=== PATIENT | female | born 1945 | race Caucasian/White ===

== ENCOUNTER 2023-04-23 09:38 | Outpatient (CLI) | payer MEDICARE ==
[2023-04-23] MEDS ORDERED: ACET-890 PO (11:02)
[2023-04-23] MEDS ORDERED: LEVO100T9 PO (11:02)
[2023-04-23] MEDS ORDERED: CHOL100046 PO (11:02)
[2023-04-23] MEDS ORDERED: AMLO5TAB16 PO (11:02)
[2023-04-23] MEDS ORDERED: CYAN250010 PO (11:02)
[2023-04-23] MEDS ORDERED: ADV50250 INH (11:02)
[2023-04-23] MEDS ORDERED: UMEC62.5 INH (11:02)
[2023-04-23] MEDS ORDERED: ROSU20TA73 PO (11:02)
[2023-04-23] MEDS ORDERED: ASPI-1397 PO (11:02)
[2023-04-23] MEDS ORDERED: LORA-641 PO (11:02)
[2023-04-23] MEDS ORDERED: FLUT1BLS13 INH (11:02)
[2023-04-23] MEDS ORDERED: RIVA2.5T PO (11:02)
[2023-04-23 11:39] LABS: ALBUMIN 3.7 G/DL (3.4-5.0); ALBUMIN/GLOBULIN RATIO 1.1 (1.1-1.5); ALKALINE PHOSPHATASE 124 IU/L (46-116); BLOOD UREA NITROGEN 7 MG/DL (7-18); BUN/CREATININE RATIO 12.3 (10.0-20.0); CALCIUM 9.4 MG/DL (8.5-10.1); CHLORIDE 104 MMOL/L (99-107); CREATININE 0.57 MG/DL (0.40-0.90); PRE OP ALT 29 U/L (30-65); PRE OP ANION GAP 6 (8-16); PRE OP AST 23 U/L (10-37); PRE OP BILIRUB, TOTAL 0.4 MG/DL (0.0-1.0); PRE OP GLUCOSE 88 MG/DL (70-104); PRE OP SODIUM 139 MMOL/L (135-145); TOTAL CARBON DIOXIDE 29.5 MMOL/L (24-32); TOTAL PROTEIN 7.1 G/DL (6.4-8.2); eGFR > 90 ML/MIN
== END 2023-04-23 23:59 | disposition home or self-care (01) ==
LOC: LAB 09:38 → EDSTATUS 04-30 07:30
PROVIDERS: ATTEND Surgery
DX: Z01.818 Encounter for other preprocedural examination (principal); K41.90 Unilateral femoral hernia, without obstruction or gangrene, not specified as recurrent; J43.9 Emphysema, unspecified; I10 Essential (primary) hypertension; E03.9 Hypothyroidism, unspecified; Z90.49 Acquired absence of other specified parts of digestive tract; Z90.710 Acquired absence of both cervix and uterus; Z98.890 Other specified postprocedural states; Z98.51 Tubal ligation status; Z79.899 Other long term (current) drug therapy; Z87.891 Personal history of nicotine dependence
CPT/HCPCS: 36415; 80053; 85025

== ENCOUNTER 2023-06-25 08:24 | Day surgery (SDC) | payer MEDICARE ==
[2023-06-18 15:54] LABS: BASOPHILS # (AUTO) 0.1 X10'3 (0-0.2); EOSINOPHILS # (AUTO) 0.2 X10'3 (0-0.9); EOSINOPHILS % (AUTO) 1.8 % (0-6); LYMPHOCYTES # (AUTO) 2.3 X10'3 (1.1-4.8); LYMPHOCYTES % (AUTO) 22.1 % (21-51); MEAN CORPUSCULAR HEMOGLOBIN 24.8 PG (27.0-31.0); MEAN CORPUSCULAR HGB CONC 32.2 g/dL (33.0-36.5); MEAN CORPUSCULAR VOLUME 76.9 FL (78-98); MEAN PLATELET VOLUME 7.9 FL (7.4-10.4); MONOCYTES # (AUTO) 0.6 X10'3 (0-0.9); MONOCYTES % (AUTO) 6.3 % (2-12); NEUTROPHILS # (AUTO) 7.1 X10'3 (1.8-7.7); NEUTROPHILS % (AUTO) 68.8 % (42-75); PRE OP HEMATOCRIT 34.8 % (35.0-45.0); PRE OP HEMOGLOBIN 11.2 g/dL (12.0-16.0); PRE OP PLATELET COUNT 353 X10'3 (140-440); PRE OP WHITE BLOOD COUNT 10.4 10'3 (4.8-10.8); RED BLOOD COUNT 4.52 X10'6 (4.20-5.60); RED CELL DISTRIBUTION WIDTH 16.1 % (11.5-14.5)
[2023-06-18 16:27] LABS: ALBUMIN 3.8 G/DL (3.4-5.0); BLOOD UREA NITROGEN 11 MG/DL (7-18); BUN/CREATININE RATIO 16.9 (10.0-20.0); CALCIUM 9.7 MG/DL (8.5-10.1); CHLORIDE 103 MMOL/L (99-107); CREATININE 0.65 MG/DL (0.40-0.90); PRE OP ANION GAP 9 (8-16); PRE OP GLUCOSE 95 MG/DL (70-104); PRE OP POTASSIUM 3.4 MMOL/L (3.4-5.1); PRE OP SODIUM 141 MMOL/L (135-145); TOTAL CARBON DIOXIDE 29.5 MMOL/L (24-32); eGFR 88 ML/MIN
[2023-06-18 17:02] LABS: ALKALINE PHOSPHATASE 121 IU/L (46-116); PRE OP ALT 30 U/L (30-65); PRE OP AST 20 U/L (10-37); PRE OP BILIRUB, TOTAL 0.4 MG/DL (0.0-1.0); TOTAL PROTEIN 7.6 G/DL (6.4-8.2)
[~2023-06-25] VITALS: Ht 160 cm; Wt 63.5 kg
[2023-06-25] VITALS (13 sets, daily range): BP systolic 132–194; BP diastolic 51–183; PULSE 68–104; RESP 11–19; TEMP 97.9; O2SAT 94–100
[2023-06-25] MEDS: cefazolin 2gm/D5W 100mL 100 ML IV ONE (05:30)
[~2023-06-25 08:24] MED LIST: ACET-890 PO; ADV50250 INH; AMLO5TAB16 PO; ASPI-1397 PO; CHOL100046 PO; CYAN250010 PO; FLUT1BLS13 INH; LEVO100T9 PO; LORA-641 PO; RIVA2.5T PO; ROSU20TA73 PO; UMEC62.5 INH; ringers solution, lacted 1,000 ML IV SCH
[2023-06-25] MEDS: famotidine 20mg tablet PO ONE (08:55)
[2023-06-25] MEDS ORDERED: ALBU90AE INH (09:19)
[2023-06-25] MEDS ORDERED: LIDOcaine 1% 30ml preserv. free vial ONE (09:20)
[2023-06-25] MEDS ORDERED: BUPIVAcaine/PF 2.5mg/ml (0.25%) 10ml vial ONE (09:20)
[2023-06-25] MEDS ORDERED: propofol inj 20 ML IV ONE (09:28)
[2023-06-25] MEDS ORDERED: fentaNYL/PF 50MCG/1 ML 2ML syringe ONE (09:28)
[2023-06-25] MEDS ORDERED: midazolam 1 mg/ML 2ml injection ONE (09:28)
[2023-06-25] MEDS ORDERED: rocuronium 10mg/ml inj IV ONE (09:28)
[2023-06-25] MEDS ORDERED: sevoflurane 250ml liquid IH ONE (09:32)
[2023-06-25] MEDS ORDERED: meperidine/PF 25mg/ml syringe IV PRN ×2 (09:35)
[2023-06-25] MEDS ORDERED: proCHLORperazine 10 MG/2 ml inj IV PRN (09:35)
[2023-06-25] MEDS ORDERED: ringers solution, lacted 1,000 ML IV SCH (09:35)
[2023-06-25] MEDS ORDERED: morphine 4 MG/ML inj SYRINge IV PRN (09:35)
[2023-06-25] MEDS ORDERED: ipratropium/albuterol 3ml nebule IH ONE (09:35)
[2023-06-25] MEDS ORDERED: morphine 2 MG/ML inj. syringe IV PRN (09:35)
[2023-06-25] MEDS: BUPIVAcaine/PF 2.5mg/ml (0.25%) 10ml vial IJ ONE (10:14)
[2023-06-25] MEDS: LIDOcaine 1% 30ml preserv. free vial IJ ONE (10:16)
[2023-06-25] MEDS ORDERED: ondansetron/PF 4mg/2ml inj ONE (10:23)
[2023-06-25] MEDS ORDERED: neostigmine methylsulfate 1 MG/ML 10ml vial ONE (10:24)
[2023-06-25] MEDS ORDERED: dexamethasone sod phosphate 4mg/ml inj. ONE (10:24)
[2023-06-25] MEDS ORDERED: glycopyrrolate 0.2mg/ml inj ONE (10:24)
[2023-06-25] MEDS: ondansetron/PF 4mg/2ml inj IV PRN (11:00)
[2023-06-25] MEDS: meperidine/PF 25mg/ml syringe IV PRN (11:01)
[2023-06-25] MEDS: acetaminophen 1,000mg/100ml IV 100 ML IV ONE (12:04)
[2023-06-25] MEDS: HYDROcodone/acetaminophen 5mg/325mg tablet PO PRN (12:55)
== END 2023-06-25 13:00 | disposition home or self-care (01) ==
LOC: PAS 08:24
PROVIDERS: ATTEND Surgery
DX: K44.9 Diaphragmatic hernia without obstruction or gangrene (principal); K29.70 Gastritis, unspecified, without bleeding; K40.90 Unilateral inguinal hernia, without obstruction or gangrene, not specified as recurrent; K41.90 Unilateral femoral hernia, without obstruction or gangrene, not specified as recurrent; I10 Essential (primary) hypertension; J43.9 Emphysema, unspecified; E03.9 Hypothyroidism, unspecified; Z95.5 Presence of coronary angioplasty implant and graft; Z87.891 Personal history of nicotine dependence; Z90.49 Acquired absence of other specified parts of digestive tract; Z90.710 Acquired absence of both cervix and uterus; Z98.890 Other specified postprocedural states; Z98.51 Tubal ligation status; Z79.899 Other long term (current) drug therapy; Z99.81 Dependence on supplemental oxygen; Z95.820 Peripheral vascular angioplasty status with implants and grafts
CPT/HCPCS: 36415; 43235; 49650; 80053; 82948; 85025; 93005; C1781; J0131; J0690; J1100; J2175; J2250; J2405; J2704; J2710; J3010; J3490; J7030; J7120; Z7506; Z7508; Z7512; A4215; A4615; A4618